=== PATIENT | male | born 2000 | race Caucasian/White ===

== ENCOUNTER 2021-08-14 17:56 | Emergency (ER) | payer BC, SELFPAY ==
[2021-08-14] MEDS ORDERED: Diazepam 10 MG/2 ML SYRINGE ONE (18:48)
[2021-08-14] MEDS ORDERED: Ketorolac Tromethamine 30 MG/ML VIAL ONE (19:50)
[2021-08-14] MEDS ORDERED: Acetaminophen 500 MG TAB ONE ×2 (19:51→19:55)
== END 2021-08-14 21:15 | disposition home or self-care (01) ==
LOC: ERS 17:56
DX: S39.012A Strain of muscle, fascia and tendon of lower back, initial encounter (principal); X50.9XXA Other and unspecified overexertion or strenuous movements or postures, initial encounter
CPT/HCPCS: 96374; 96375; J1885; J3360